=== PATIENT | male | born 1950 | race Caucasian/White ===

== ENCOUNTER 2020-09-01 11:54 | Inpatient (IN) | payer OTHER ==
[2020-09-01 15:10] VITALS: BMI 25.0
[2020-09-01] MEDS ORDERED: MAG HYDROX/AL HYDROX/SIMETH 30 ML UNIT-DOSE CUP PO PRN (15:24)
[2020-09-01] MEDS ORDERED: ONDANSETRON *ODT* 4 MG TABLET SL PRN (15:24)
[2020-09-01] MEDS ORDERED: IBUPROFEN 400 MG TABLET (FP) PO PRN (15:24)
[2020-09-01] MEDS ORDERED: BISMUTH SUBSALICYLATE 524 MG/30 ML UD PO PRN (15:24)
[2020-09-01] MEDS ORDERED: METHOCARBAMOL 500 MG TABLET PO PRN (15:24)
[2020-09-01] MEDS ORDERED: chlordiazePOXIDE HCL 25 MG CAPSULE PO PRN (15:24)
[2020-09-01] MEDS ORDERED: NICOTINE POLACRILEX 2 MG GUM BUC PRN (15:24)
[2020-09-01] MEDS ORDERED: MAGNESIUM CITRATE 300 ML BOTTLE PO PRN (15:24)
[2020-09-01] MEDS ORDERED: MENTHOL/PHENOL 1 EACH UD MM PRN (15:24)
[2020-09-01] MEDS ORDERED: ACETAMINOPHEN 325 MG TABLET (FP) PO PRN ×2 (15:24)
[2020-09-01] MEDS ORDERED: MAGNESIUM HYDROX 2400MG/30ML ORAL SUSPENSION 30 ML CUP PO PRN (15:24)
[2020-09-01] MEDS ORDERED: chlordiazePOXIDE HCL 25 MG CAPSULE ONE (15:44)
[2020-09-01 17:25] LABS: CALCIUM 8.4 mg/dL (8.5-10.1)
[2020-09-01 17:26] LABS: ALBUMIN 3.7 g/dl (3.4-5.0); HEMATOCRIT 39.7 % (35.4-49); MCH 36.8 pg (25.7-33.7); MCHC 35.2 g/dl (32.0-35.9); MEAN CELL VOLUME 104.6 fl (80-96); MEAN PLT VOLUME 9.1 fl (7.5-11.1); PLATELET COUNT 197 K/MM3 (134-434); RDW 14.2 % (11.9-15.9); WHITE BLOOD COUNT 6.9 K/mm3 (4.0-10.0)
[2020-09-01 17:30] LABS: BILIRUBIN,TOTAL 0.6 mg/dL (0.2-1); TOT PROT 8.1 g/dl (6.4-8.2)
[2020-09-01] MEDS: NICOTINE 21 MG/24 HOURS TOPICAL PATCH TD SCH (17:44)
[2020-09-01] MEDS: chlordiazePOXIDE HCL 25 MG CAPSULE PO SCH ×2 (17:45→22:27)
[2020-09-01] MEDS: hydrOXYzine PAMOATE 25 MG CAPSULE (FP) PO SCH ×2 (17:45→22:27)
[2020-09-01] MEDS: PRENATAL VITAMINS W/ FOLIC ACID TABLET (FP) PO SCH (17:45)
[2020-09-01] MEDS: MELATONIN 5 MG TABLETS PO SCH (22:27)
[2020-09-01] MEDS: THIAMINE HCL 100 MG TABLET (FP) PO SCH (22:27)
[2020-09-02] MEDS: chlordiazePOXIDE HCL 25 MG CAPSULE PO SCH ×4 (05:37→22:14)
[2020-09-02] MEDS: hydrOXYzine PAMOATE 25 MG CAPSULE (FP) PO SCH ×5 (05:37→22:14)
[2020-09-02] MEDS: PRENATAL VITAMINS W/ FOLIC ACID TABLET (FP) PO SCH (10:06)
[2020-09-02] MEDS: NICOTINE 21 MG/24 HOURS TOPICAL PATCH TD SCH (10:08)
[2020-09-02] MEDS: LOSARTAN POTASSIUM 50 MG TABLET PO SCH (12:20)
[2020-09-02] MEDS: ELVITEG/COB/EMTRI/TENOF (GENVOYA) TABLET (NF) PO SCH (12:20)
[2020-09-02] MEDS: ASPIRIN COATED 81 MG TABLET.EC PO SCH (12:20)
[2020-09-02] MEDS: amLODIPine BESYLATE 5 MG TABLET (FP) PO SCH (12:20)
[2020-09-02] MEDS: metFORMIN HCL 500 MG TABLET (FP) PO SCH ×2 (12:21→17:35)
[2020-09-02] MEDS: MELATONIN 5 MG TABLETS PO SCH (22:13)
[2020-09-02] MEDS: THIAMINE HCL 100 MG TABLET (FP) PO SCH (22:14)
[2020-09-03] MEDS: hydrOXYzine PAMOATE 25 MG CAPSULE (FP) PO SCH ×5 (05:31→22:21)
[2020-09-03] MEDS: chlordiazePOXIDE HCL 25 MG CAPSULE PO SCH ×4 (05:31→22:21)
[2020-09-03] MEDS: metFORMIN HCL 500 MG TABLET (FP) PO SCH ×2 (08:15→16:52)
[2020-09-03] MEDS: ELVITEG/COB/EMTRI/TENOF (GENVOYA) TABLET (NF) PO SCH (08:15)
[2020-09-03] MEDS: PRENATAL VITAMINS W/ FOLIC ACID TABLET (FP) PO SCH (10:02)
[2020-09-03] MEDS: LOSARTAN POTASSIUM 50 MG TABLET PO SCH (10:02)
[2020-09-03] MEDS: amLODIPine BESYLATE 5 MG TABLET (FP) PO SCH (10:03)
[2020-09-03] MEDS: ASPIRIN COATED 81 MG TABLET.EC PO SCH (10:03)
[2020-09-03] MEDS: NICOTINE 21 MG/24 HOURS TOPICAL PATCH TD SCH (10:04)
[2020-09-03] MEDS: THIAMINE HCL 100 MG TABLET (FP) PO SCH (22:21)
[2020-09-03] MEDS: MELATONIN 5 MG TABLETS PO SCH (22:21)
[2020-09-04] MEDS ORDERED: chlordiazePOXIDE HCL 10 MG CAPSULE PO PRN
[2020-09-04] MEDS: metFORMIN HCL 500 MG TABLET (FP) PO SCH ×2 (06:08→17:02)
[2020-09-04] MEDS: hydrOXYzine PAMOATE 25 MG CAPSULE (FP) PO SCH ×5 (06:08→22:21)
[2020-09-04] MEDS: chlordiazePOXIDE HCL 10 MG CAPSULE PO SCH ×4 (06:09→22:21)
[2020-09-04] MEDS: ELVITEG/COB/EMTRI/TENOF (GENVOYA) TABLET (NF) PO SCH (07:46)
[2020-09-04] MEDS: ASPIRIN COATED 81 MG TABLET.EC PO SCH (10:36)
[2020-09-04] MEDS: PRENATAL VITAMINS W/ FOLIC ACID TABLET (FP) PO SCH (10:36)
[2020-09-04] MEDS: LOSARTAN POTASSIUM 50 MG TABLET PO SCH (10:36)
[2020-09-04] MEDS: amLODIPine BESYLATE 5 MG TABLET (FP) PO SCH (10:36)
[2020-09-04] MEDS: NICOTINE 21 MG/24 HOURS TOPICAL PATCH TD SCH (10:37)
[2020-09-04] MEDS: MELATONIN 5 MG TABLETS PO SCH (22:21)
[2020-09-04] MEDS: THIAMINE HCL 100 MG TABLET (FP) PO SCH (22:21)
[2020-09-05] MEDS: hydrOXYzine PAMOATE 25 MG CAPSULE (FP) PO SCH (05:28)
[2020-09-05] MEDS: chlordiazePOXIDE HCL 10 MG CAPSULE PO SCH ×2 (05:28→17:27)
[2020-09-05] MEDS: ELVITEG/COB/EMTRI/TENOF (GENVOYA) TABLET (NF) PO SCH (07:36)
[2020-09-05] MEDS: metFORMIN HCL 500 MG TABLET (FP) PO SCH ×2 (07:36→17:27)
[2020-09-05] MEDS: LOSARTAN POTASSIUM 50 MG TABLET PO SCH (10:15)
[2020-09-05] MEDS: ASPIRIN COATED 81 MG TABLET.EC PO SCH (10:15)
[2020-09-05] MEDS: PRENATAL VITAMINS W/ FOLIC ACID TABLET (FP) PO SCH (10:15)
[2020-09-05] MEDS: NICOTINE 21 MG/24 HOURS TOPICAL PATCH TD SCH (10:16)
[2020-09-05] MEDS: amLODIPine BESYLATE 5 MG TABLET (FP) PO SCH (10:18)
[2020-09-05] MEDS: hydrOXYzine PAMOATE 25 MG CAPSULE (FP) PO PRN ×2 (14:43→19:41)
[2020-09-05] MEDS: MELATONIN 5 MG TABLETS PO SCH (22:15)
[2020-09-05] MEDS: THIAMINE HCL 100 MG TABLET (FP) PO SCH (22:15)
[2020-09-06] MEDS ORDERED: chlordiazePOXIDE HCL 10 MG CAPSULE PO ONE (05:00)
[2020-09-06] MEDS: metFORMIN HCL 500 MG TABLET (FP) PO SCH (06:03)
[2020-09-06 06:30] VITALS: BP 143/78; PULSE 71; TEMP 98
[2020-09-06] MEDS: ELVITEG/COB/EMTRI/TENOF (GENVOYA) TABLET (NF) PO SCH (07:17)
== END 2020-09-06 09:09 | disposition home or self-care (01) | DRG 897 ==
LOC: YASAS 11:54 → Y3N 16:13
PROVIDERS: ADMIT Allergy & Immunology; ATTEND Allergy & Immunology
PROC: HZ2ZZZZ Detoxification Services for Substance Abuse Treatment (ICD-10-PCS; principal; 2020-09-01)
DX: F10.230 Alcohol dependence with withdrawal, uncomplicated (principal); F17.210 Nicotine dependence, cigarettes, uncomplicated; F41.9 Anxiety disorder, unspecified; Z21 Asymptomatic human immunodeficiency virus [HIV] infection status; I25.10 Atherosclerotic heart disease of native coronary artery without angina pectoris; I10 Essential (primary) hypertension; Z95.5 Presence of coronary angioplasty implant and graft; G47.00 Insomnia, unspecified; E11.65 Type 2 diabetes mellitus with hyperglycemia; Z79.84 Long term (current) use of oral hypoglycemic drugs; R74.01 Elevation of levels of liver transaminase levels
CPT/HCPCS: 36415; 80053; 82962; 85027; 86780; C9803; U0003; U0005

== ENCOUNTER 2020-10-12 12:44 | Inpatient (IN) | payer OTHER ==
[2020-10-12 15:26] VITALS: BMI 25.8
[2020-10-12] MEDS ORDERED: MAG HYDROX/AL HYDROX/SIMETH 30 ML UNIT-DOSE CUP PO PRN (15:51)
[2020-10-12] MEDS ORDERED: MAGNESIUM CITRATE 300 ML BOTTLE PO PRN (15:51)
[2020-10-12] MEDS ORDERED: MAGNESIUM HYDROX 2400MG/30ML ORAL SUSPENSION 30 ML CUP PO PRN (15:51)
[2020-10-12] MEDS ORDERED: ONDANSETRON *ODT* 4 MG TABLET SL PRN (15:51)
[2020-10-12] MEDS ORDERED: BISMUTH SUBSALICYLATE 524 MG/30 ML PO PRN (15:51)
[2020-10-12] MEDS ORDERED: ACETAMINOPHEN 325 MG TABLET (FP) PO PRN ×2 (15:51)
[2020-10-12] MEDS ORDERED: MENTHOL/PHENOL 1 EACH UD MM PRN (15:51)
[2020-10-12] MEDS ORDERED: NICOTINE POLACRILEX 2 MG GUM BUC PRN (15:51)
[2020-10-12] MEDS: METHOCARBAMOL 500 MG TABLET PO PRN (17:58)
[2020-10-12] MEDS: hydrOXYzine PAMOATE 25 MG CAPSULE (FP) PO PRN ×2 (17:58→22:08)
[2020-10-12] MEDS: diazePAM 5 MG TABLET PO SCH ×2 (17:59→22:07)
[2020-10-12] MEDS: MELATONIN 5 MG TABLETS PO SCH (22:07)
[2020-10-12] MEDS: THIAMINE HCL 100 MG TABLET (FP) PO SCH (22:07)
[2020-10-12] MEDS: IBUPROFEN 400 MG TABLET (FP) PO PRN (22:10)
[2020-10-13] MEDS: diazePAM 5 MG TABLET PO SCH ×4 (05:28→22:22)
[2020-10-13] MEDS: hydrOXYzine PAMOATE 25 MG CAPSULE (FP) PO PRN ×4 (05:29→22:23)
[2020-10-13] MEDS: metFORMIN HCL 500 MG TABLET (FP) PO SCH ×2 (06:22→17:36)
[2020-10-13] MEDS: ELVITEG/COB/EMTRI/TENOF (GENVOYA) TABLET (NF) PO SCH (07:59)
[2020-10-13] MEDS: NICOTINE 21 MG/24 HOURS TOPICAL PATCH TD SCH (10:24)
[2020-10-13] MEDS: LOSARTAN POTASSIUM 50 MG TABLET PO SCH (10:24)
[2020-10-13] MEDS: amLODIPine BESYLATE 5 MG TABLET (FP) PO SCH (10:24)
[2020-10-13] MEDS: ASPIRIN COATED 81 MG TABLET.EC PO SCH (10:24)
[2020-10-13] MEDS: PRENATAL VITAMINS W/ FOLIC ACID TABLET (FP) PO SCH (10:25)
[2020-10-13 11:10] LABS: HEMATOCRIT 42.3 % (35.4-49); HEMOGLOBIN 14.3 GM/dL (11.7-16.9); MCH 35.1 pg (25.7-33.7); MCHC 33.9 g/dl (32.0-35.9); MEAN CELL VOLUME 103.7 fl (80-96); MEAN PLT VOLUME 9.3 fl (7.5-11.1); PLATELET COUNT 132 10^3/uL (134-434); RBC 4.08 M/mm3 (4.00-5.60); RDW 14.7 % (11.9-15.9); WHITE BLOOD COUNT 4.2 K/mm3 (4.0-10.0)
[2020-10-13 11:29] LABS: ALBUMIN 3.3 g/dl (3.4-5.0); BLOOD UREA NITROGEN 17.1 mg/dL (7-18); CALCIUM 8.7 mg/dL (8.5-10.1)
[2020-10-13 11:32] LABS: CREATININE 0.7 mg/dL (0.55-1.3)
[2020-10-13 11:34] LABS: BILIRUBIN,TOTAL 0.8 mg/dL (0.2-1); TOT PROT 7.1 g/dl (6.4-8.2)
[2020-10-13] MEDS: IBUPROFEN 400 MG TABLET (FP) PO PRN (17:37)
[2020-10-13] MEDS: THIAMINE HCL 100 MG TABLET (FP) PO SCH (22:22)
[2020-10-13] MEDS: MELATONIN 5 MG TABLETS PO SCH (22:22)
[2020-10-13] MEDS: METHOCARBAMOL 500 MG TABLET PO PRN (22:23)
[2020-10-14] MEDS: diazePAM 5 MG TABLET PO SCH ×3 (05:45→22:03)
[2020-10-14] MEDS: metFORMIN HCL 500 MG TABLET (FP) PO SCH ×2 (06:19→17:20)
[2020-10-14] MEDS: METHOCARBAMOL 500 MG TABLET PO PRN ×2 (06:31→22:04)
[2020-10-14] MEDS: PRENATAL VITAMINS W/ FOLIC ACID TABLET (FP) PO SCH (10:04)
[2020-10-14] MEDS: NICOTINE 21 MG/24 HOURS TOPICAL PATCH TD SCH (10:05)
[2020-10-14] MEDS: amLODIPine BESYLATE 5 MG TABLET (FP) PO SCH (10:05)
[2020-10-14] MEDS: ASPIRIN COATED 81 MG TABLET.EC PO SCH (10:05)
[2020-10-14] MEDS: LOSARTAN POTASSIUM 50 MG TABLET PO SCH (10:05)
[2020-10-14] MEDS: diazePAM 5 MG TABLET PO PRN ×2 (10:07→17:19)
[2020-10-14] MEDS: hydrOXYzine PAMOATE 25 MG CAPSULE (FP) PO PRN ×3 (10:45→22:03)
[2020-10-14] MEDS: IBUPROFEN 400 MG TABLET (FP) PO PRN ×2 (10:46→17:21)
[2020-10-14] MEDS: MELATONIN 5 MG TABLETS PO SCH (22:03)
[2020-10-14] MEDS: THIAMINE HCL 100 MG TABLET (FP) PO SCH (22:05)
[2020-10-15] MEDS: diazePAM 5 MG TABLET PO SCH ×2 (05:18→17:11)
[2020-10-15] MEDS: IBUPROFEN 400 MG TABLET (FP) PO PRN ×3 (05:20→20:36)
[2020-10-15] MEDS: hydrOXYzine PAMOATE 25 MG CAPSULE (FP) PO PRN ×3 (05:20→20:37)
[2020-10-15] MEDS: metFORMIN HCL 500 MG TABLET (FP) PO SCH ×2 (06:54→16:49)
[2020-10-15] MEDS: PRENATAL VITAMINS W/ FOLIC ACID TABLET (FP) PO SCH (10:06)
[2020-10-15] MEDS: diazePAM 5 MG TABLET PO PRN ×2 (10:07→15:26)
[2020-10-15] MEDS: NICOTINE 21 MG/24 HOURS TOPICAL PATCH TD SCH (10:07)
[2020-10-15] MEDS: ASPIRIN COATED 81 MG TABLET.EC PO SCH (10:07)
[2020-10-15] MEDS: amLODIPine BESYLATE 5 MG TABLET (FP) PO SCH (10:07)
[2020-10-15] MEDS: LOSARTAN POTASSIUM 50 MG TABLET PO SCH (10:07)
[2020-10-15] MEDS: METHOCARBAMOL 500 MG TABLET PO PRN ×2 (15:25→22:02)
[2020-10-15] MEDS: THIAMINE HCL 100 MG TABLET (FP) PO SCH (22:01)
[2020-10-15] MEDS: MELATONIN 5 MG TABLETS PO SCH (22:01)
[2020-10-16] MEDS: hydrOXYzine PAMOATE 25 MG CAPSULE (FP) PO PRN ×2 (05:17→11:01)
[2020-10-16] MEDS ORDERED: diazePAM 5 MG TABLET PO ONE (06:00)
[2020-10-16] MEDS: metFORMIN HCL 500 MG TABLET (FP) PO SCH (07:05)
[2020-10-16 09:04] VITALS: BP 155/74; PULSE 67; TEMP 96.8
[2020-10-16] MEDS: ASPIRIN COATED 81 MG TABLET.EC PO SCH (10:12)
[2020-10-16] MEDS: amLODIPine BESYLATE 5 MG TABLET (FP) PO SCH (10:12)
[2020-10-16] MEDS: PRENATAL VITAMINS W/ FOLIC ACID TABLET (FP) PO SCH (10:12)
[2020-10-16] MEDS: LOSARTAN POTASSIUM 50 MG TABLET PO SCH (10:12)
[2020-10-16] MEDS: ELVITEG/COB/EMTRI/TENOF (GENVOYA) TABLET (NF) PO SCH (10:13)
[2020-10-16] MEDS: NICOTINE 21 MG/24 HOURS TOPICAL PATCH TD SCH (10:14)
== END 2020-10-16 12:27 | disposition home or self-care (01) | DRG 897 ==
LOC: YASAS 12:44 → Y3N 16:53
PROVIDERS: ADMIT Allergy & Immunology; ATTEND Allergy & Immunology
PROC: HZ2ZZZZ Detoxification Services for Substance Abuse Treatment (ICD-10-PCS; principal; 2020-10-12)
DX: F10.230 Alcohol dependence with withdrawal, uncomplicated (principal); F17.210 Nicotine dependence, cigarettes, uncomplicated; F10.282 Alcohol dependence with alcohol-induced sleep disorder; F10.280 Alcohol dependence with alcohol-induced anxiety disorder; Z21 Asymptomatic human immunodeficiency virus [HIV] infection status; I25.10 Atherosclerotic heart disease of native coronary artery without angina pectoris; I10 Essential (primary) hypertension; Z95.5 Presence of coronary angioplasty implant and graft; E78.00 Pure hypercholesterolemia, unspecified; E11.9 Type 2 diabetes mellitus without complications; Z79.84 Long term (current) use of oral hypoglycemic drugs; H54.62 Unqualified visual loss, left eye, normal vision right eye
CPT/HCPCS: 36415; 80053; 82962; 85027; 86780; 93005; 93010; C9803; U0003; U0005